=== PATIENT | male | born 1930 | race Caucasian/White ===

== ENCOUNTER 2018-10-10 13:02 | Emergency (ER) | payer MEDICARE ==
[2018-10-10] MEDS ORDERED: Lidocaine 1% 20 ML MDV ONE (13:25)
[2018-10-10] MEDS ORDERED: Bacitracin 1 PK ONE (14:32)
== END 2018-10-10 14:00 | disposition home or self-care (01) ==
LOC: MADERS 13:02
DX: S61.012A Laceration without foreign body of left thumb without damage to nail, initial encounter (principal); I10 Essential (primary) hypertension; E03.9 Hypothyroidism, unspecified; Z79.82 Long term (current) use of aspirin; W27.0XXA Contact with workbench tool, initial encounter; Z79.899 Other long term (current) drug therapy
CPT/HCPCS: 12002; J2001